=== PATIENT | male | born 1950 | race Caucasian/White ===

== ENCOUNTER 2019-03-21 11:17 | Outpatient (CLI) | payer MEDICARE, SELFPAY ==
[2019-03-21 12:00] LABS: Hemoglobin A1C 7.5 % (<5.7)
== END 2019-03-21 11:18 | disposition home or self-care (01) ==
LOC: CHSLAB 11:22
PROVIDERS: PCP Internal Medicine
DX: E10.42 Type 1 diabetes mellitus with diabetic polyneuropathy (principal)
CPT/HCPCS: 36415; 83036

== ENCOUNTER 2019-08-09 14:19 | Emergency (ER) | payer MEDICARE, OTHER, SELFPAY ==
--- NOTE | ~2019-08-09 | XR_ITS ---
XR shoulder LT min 2V DATE: 08/09/2019 15:21 INDICATION: Left shoulder pain following injury from fall TECHNIQUE: 4 views COMPARISON: None FINDINGS: There are multiple old healed left rib fractures. No recent fracture or dislocation of the left shoulder. Normal alignment at the acromioclavicular and glenohumeral joints. There is some calcification of the rotator cuff consistent with calcific tendin itis. There is a small erosion of the greater tuberosity. IMPRESSION: Left rotator cuff calcific tendinitis Old healed left rib fractures Reviewed, dictated and finalized at location A.
[2019-08-09 14:35] VITALS: BP 134/46; PULSE 63; RESP 17; TEMP 36.4; O2SAT 98
--- NOTE | 2019-08-09 14:59 | ED.UPPEXIN ---
HPI - Extremity Injury (Upper) General Stated Complaint: fell injured left shoulder Source: patient Mode of arrival: ambulatory Limitations: no limitations History of Present Illness HPI narrative: Patient is a 69-year-old male who tripped over something in his driveway and fell to the ground. Patient states he has been having a lot of pain and has left shoulder, however after the fall injury got exacerbated. Patient states he is able to move the arm it just hurts. Patient did not hit his head he had no loss of bowel or bladder he has a mild abrasion to his right knee but otherwise no other injury. Patient and is in his normal state of health. Patient did have back surgery approximately a month and a half ago and is healing well from that. complaint: injury to: left Onset (ago): hour(s) Other Extremity Injury: Left: shoulder Other injuries: LLE Place: home Severity: mild Relieving factors: none Exacerbating factors: movement of extremity Context: fall Associated symptoms: denies other symptoms Related Data Home Medications Medication Instructions Recorded Confirmed M.V.I. Adult 1 tab-cap PO DAILY 12/07/18 12/07/18 albuterol sulfate 2 inh INHALATION Q4-6H PRN 12/07/18 12/07/18 amlodipine 10 mg PO DAILY 12/07/18 12/07/18 ascorbic acid (vitamin C) [Vitamin 1 g PO DAILY 12/07/18 12/07/18 C] cetirizine 10 mg PO DAILY 12/07/18 12/07/18 escitalopram oxalate 20 mg PO DAILY 12/07/18 12/07/18 esomeprazole magnesium 20 mg PO DAILY 12/07/18 12/07/18 ezetimibe-simvastatin 1 tablet PO DAILY 12/07/18 12/07/18 fluticasone propion-salmeterol 1 inh INHALATION Q12H 12/07/18 12/07/18 [Advair Diskus] furosemide 20 mg PO DAILY 12/07/18 12/07/18 gabapentin 600 mg PO TID 12/07/18 12/07/18 levothyroxine 100 mcg PO DAILY 12/07/18 12/07/18 montelukast 10 mg PO DAILY 12/07/18 12/07/18 potassium chloride 10 meq PO DAILY 12/07/18 12/07/18 tiotropium bromide [Spiriva 1 puff INHALATION DAILY 12/07/18 12/07/18 Respimat] Allergies Allergy/AdvReac Type Severity Reaction Status Date / Time morphine Allergy Hallucinati Verified 12/07/18 02:31 ng Penicillins Allergy Hives Verified 12/07/18 02:31 Review of Systems Review of Systems: All systems reviewed & are unremarkable except as noted in HPI and below [facility] Social History Social History (Updated 08/09/19 @ 15:01 by Giselle Haynes MD) Alcohol intake: current Substance use: never Gender identity (if verbalized by the patient): Male Exam Const: General: no acute distress HENMT: Head: normal to inspection Eyes: Conjunctivae: conjunctivae normal Pupils: Equal, round and reactive pupils present Neck: Neck: normal visual inspection Chest: Chest palpation & inspection: normal inspection of the chest Resp: Effort & Inspection: normal respiratory effort Auscultation: clear to auscultation bilaterally Cardio: Rate: regular rate Rhythm: regular rhythm GI: GI Palp: Yes Soft to palpation, No Tenderness to palpation present (GI) and No Guarding due to palpation present (GI) Other: Umbilical hernia, patient states that is baseline. Back/Spine/Pelvis: Back: no CVA tenderness Skin: General skin exam: normal color Neuro: General: patient oriented x3 and moves all extremities Extrem: General: normal to inspection Other: Patient presents with pain to left shoulder he has mild pain on palpation. Patient is able to do full range of motion. He does not have pain over the humerus the pain seems to be the distal AC joint. Psych: Appearance: grossly normal Mental Status: mental status grossly normal Thought content: Yes Normal thought content present Discharge Plan Discharge Clinical Impression: Left shoulder pain Qualifiers: Chronicity: acute Qualified Code(s): M25.512 - Pain in left shoulder Patient Disposition: Home, Self-Care Condition: Stable Instructions: Antibiotic Form Prescriptions: No Action ascorbic acid (vitamin C) [Vitamin C
[2019-08-09 15:55] VITALS: RESP 17
== END 2019-08-09 15:55 | disposition home or self-care (01) ==
PROVIDERS: Emergency Provider Emergency Medicine; PCP Internal Medicine
DX: M25.512 Pain in left shoulder (principal)
CPT/HCPCS: 73030; 99282; 99283

== ENCOUNTER 2019-08-19 13:52 | Outpatient (RCR) | payer MEDICARE, OTHER, SELFPAY ==
--- NOTE | 2019-08-19 14:51 | PTOPEVAL ---
Thank you for referring Goyo Yepez to [facility]. Please review, sign, date and return this plan of care ARIEL. I agree with and certify that the following plan of care is medically necessary. Referring Physician Date Admitting Provider: Attending Provider: PHYSICIAN NOT ON STAFF Referring Provider: *PT Outpatient Evaluation Start: 08/19/19 14:04 Freq: Status: Active Protocol: Document 08/19/19 14:05 GRACIE (Rec: 08/19/19 14:32 GRACIE [id number]) Therapy Assessment Status Assessment Status Assessment Status Evaluation Outpatient Past Medical History Cardiovascular History Hx Hypercholesterolemia Yes Hx Hypertension Yes Respiratory History Hx Asthma Yes Gastrointestinal History Hx Appendectomy Yes Musculoskeletal History Hx Back Pain Yes Hx Fractures Yes: Lt femur Hx Joint Replacement Yes: Rt knee Endocrine History Hx Thyroidectomy Yes Evaluation Information Problem Diagnosis spinal stenosis of lumbar region with neurogenic claudication Onset 07/03/19 Cause Oswestry=46% Subjective Information Pt. reports that he underwent Query Text:As Reported By Patient/ surgery on his low back on . He reports that he stayed at the hospital for 2 days after surgery. He states that he has been trying to walk, but states that his activity levels have been decreased. He reports that he is most limited by pain with standing. He reports that pain is mostly into the left buttock. He reports that he has hx of bad knees and has had one replacment. he reports that knee pain also limits his ability to stand. He reports that his goal is to be able to walk further and stand longer. Prior Level of Function Activity Level (Last 3 Months) Occupation retired Hand Dominance Right Activity of Daily Living Ability Independent Indoor/Home Mobility Independent Community Mobility Independent Stairs Ability Independent Functional Cognition (Planning, Shopping Independent , Taking Medications)
--- NOTE | 2019-09-17 07:18 | PCPTNOTE ---
patient cancelled appt due to a conflict. EUGENIO
== END 2019-09-30 10:15 | disposition home or self-care (01) ==
LOC: CHSPT 13:52
DX: M48.062 Spinal stenosis, lumbar region with neurogenic claudication (principal)
CPT/HCPCS: 97110; 97161; 97530

== ENCOUNTER 2019-12-04 10:00 | Outpatient (RCR) | payer MEDICARE, OTHER, SELFPAY ==
--- NOTE | 2019-12-04 10:50 | PTOPEVAL ---
Thank you for referring Goyo Yepez to [facility].? The patient is scheduled to be seen for therapy? ____x/week for ___ weeks. Please review, sign, date and return this plan of care ARIEL. I agree with and certify that the following plan of care is medically necessary. Referring Physician Date Admitting Provider: Attending Provider: PHYSICIAN NOT ON STAFF Referring Provider: *PT Outpatient Evaluation Start: 12/04/19 10:01 Freq: Status: Active Protocol: Document 12/04/19 10:00 [facility] (Rec: 12/04/19 10:37 [facility] [id number]) Therapy Assessment Status Assessment Status Assessment Status Evaluation Outpatient Past Medical History Cardiovascular History Hx Hypercholesterolemia Yes Hx Hypertension Yes Respiratory History Hx Asthma Yes Gastrointestinal History Hx Appendectomy Yes Musculoskeletal History Hx Back Pain Yes Hx Fractures Yes: Lt femur Hx Joint Replacement Yes: Rt knee Endocrine History Hx Thyroidectomy Yes Evaluation Information Problem Diagnosis L hip pain Onset 11/26/19 Subjective Information patient reports he continues Query Text:As Reported By Patient/ to have pain in the L hip. he Family reports he was evaluated by a specialist who reports he a bursitis and OA in the L hip. he reports he also has issues with the L knee and worries his hip will not get better until he has surgery on the L knee. he reports he has the most difficulty with walking. he reports he also has great difficulty with standing. Prior Level of Function Comments Additional Prior Level of Function patient reports the pain in Comments the L hip has been increased for about 1 month. he reports he requires increased time and more bouts to accomplish all daily activities. Pain Assessment Timing of Pain Assessment Timing of Pain Assessment Assessment Pain Scale Pain Scale Used Numeric (1 - 10) Self Report Pain Assessment Left Hip(s) Reported Pain Level 5 Pain Description Aching,Stabbing Pain Frequency Acute,Chronic,Continuous Lowest Pain Intensity 3 Greatest Pain Intensity 7 Pain Score Pain Score 5: Self Report Interventions Used Interventions Used By Cl
--- NOTE | 2019-12-26 10:26 | PCPTNOTE ---
12/26/19-pt called to cancel, stated he is in too much pain still today in his mouth after having teeth removed last week. -HM
== END 2019-12-24 15:26 | disposition home or self-care (01) ==
LOC: CHSPT 10:00
DX: M25.552 Pain in left hip (principal); M16.12 Unilateral primary osteoarthritis, left hip
CPT/HCPCS: 97110; 97140; 97161

== ENCOUNTER 2019-12-31 15:20 | Inpatient (IN) | payer MEDICARE, OTHER, SELFPAY ==
[2019-12-31 15:42] VITALS: BMI 36.0
[2019-12-31 16:35] VITALS: PULSE 76; RESP 18; O2SAT 96
[2019-12-31 16:44] LABS: Glucose Point of Care 159 (65-105)
--- NOTE | 2019-12-31 16:44 | PC.NURSE ---
Patient ambulated from stretcher to bed. Patient has insulin pump on. Glucose monitor. [facility] on. Patient brought own cpap. Password RED
--- NOTE | 2019-12-31 17:09 | PC.NURSE ---
Incision left anterior shoulder. Skin intact, well approximated. Edema, bruising
--- NOTE | 2019-12-31 19:35 | PC.NURSE ---
Patient rang call light, stated he got an alert from his Dexcom that his blood sugar was 66, asked for a regular soda. SN took a can of Pepsi, offered additional snack of vanilla pudding, symone crackers, peanut butter and cottage cheese. Patient agreed to eat offered food, requested trip to restroom first. SN assisted patient to restroom and back to chair. Per Dexcom, blood sugar reading 44. Patient ate pudding, finished soda and ate 1 package of symone crackers. Dexcom reading 66. Patient drank some water, ate cottage cheese. Dexcom alerted to low blood sugar again, reading 46. SN checked patients blood sugar with facility meter, reading obtained of 245. Patient removed Dexcom meter and will monitor with facility glucose meter this evening.
[2019-12-31 20:00] VITALS: BP 140/63; PULSE 74; RESP 20; TEMP 37.4; O2SAT 95
[2019-12-31 20:20] LABS: Glucose Point of Care 245 (65-105)
[2019-12-31] MEDS: TAMSULOSIN HCL 0.4 MG CAPSULE 0.8 MG PO (21:13)
[2019-12-31] MEDS: traMADol HCL (*CRX) 50 MG TABLET PO (21:13)
[2019-12-31 21:39] LABS: Glucose Point of Care 274 (65-105)
[2019-12-31 23:10] VITALS: BP 143/64; PULSE 78; RESP 18; TEMP 37.2; O2SAT 95
[2020-01-01] MEDS: ACETAMINOPHEN 325 MG TABLET 650 MG PO ×3 (02:41→16:23)
--- NOTE | 2020-01-01 04:15 | PC.NURSE ---
Patient requested his blood sugar be checked. Blood sugar result 286. Pt. put result into insulin pump, insulin pump calculated a 3.9 ut dose, pt. administered insulin through pump.
[2020-01-01] MEDS: traMADol HCL (*CRX) 50 MG TABLET PO ×2 (04:16→22:57)
[2020-01-01 04:20] LABS: Glucose Point of Care 286 (65-105)
[2020-01-01] MEDS: LEVOTHYROXINE SODIUM 100 MCG TABLET PO (05:21)
[2020-01-01 07:57] LABS: Glucose Point of Care 193 (65-105)
--- NOTE | 2020-01-01 07:57 | PC.NURSE ---
AM glucose noted to be 193, patient programmed the number in to his insulin pump and administered 1.1 units
[2020-01-01 07:58] VITALS: BP 146/49; PULSE 66; RESP 18; TEMP 36.3; O2SAT 95
--- NOTE | 2020-01-01 08:05 | WPDREHABHP ---
H&P: HPI History of Present Illness Date/Time: 01/01/20 08:05 Chief complaint: REHAB Narrative: Goyo Yepez is a 69 year old male who comes in this facility status post left rotator cuff repair for physical therapy and reconditioning. Patient is familiar with physical therapy and the requirements as he has had his right knee replaced in the past. Patient also has a history of asthma hypertension diabetes Graves disease. Patient has no complaints at this time in particular states pain management is good for his left shoulder. Review of Systems Constitutional Constitutional: Reports no additional constitutional complaints, Denies fatigue, Denies fever(s), Denies headache(s) and Reports weakness (Left arm) Cardiovascular Cardiovascular: Reports no additional cardiovascular complaints, Denies chest pain, Denies chest pain at rest and Denies chest pain with activity Respiratory Respiratory: Reports as per HPI, Reports no additional respiratory complaints, Denies dyspnea and Denies dyspnea on exertion Gastrointestinal Gastrointestinal: Reports no additional gastrointestinal complaints Genitourinary Genitourinary: Reports no additional male genitourinary complaints Musculoskeletal Musculoskeletal: Reports as per HPI Neurologic Reports system reviewed and no additional complaints, except as documented, Denies focal weakness, Denies numbness and Denies tingling Psychiatric Psychiatric: Reports no additional psychiatric complaints Endocrine Endocrine: Reports no additional endocrine complaints and Reports as per HPI [facility] Past Medical History Medical History Asthma Femur fracture, left Graves disease Hyperlipidemia Hypertension Type 1 diabetes mellitus Surgical History Surgical History History of appendectomy History of thyroidectomy, total Family History Family History Sibling Cancer Asthma Mother Leukemia Sibling Malignant neoplasm of prostate Father Asthma Social History Social History Smoking status: Never smoker Alcohol intake: current Drinks per week: 1 Substance use: never Gender identity (if verbalized by the patient): Male Sexual Orientation (if Verbalized by the Patient): Straight or Heterosexual Spiritual care concerns: No Meds Home Medications and Allergies Home Medications Medication Instructions Recorded Confirmed Type albuterol sulfate 2 inh INHALATION Q4-6H PRN 12/07/18 12/31/19 History amlodipine 10 mg PO DAILY 12/07/18 12/31/19 History cetirizine 10 mg PO DAILY 12/07/18 12/31/19 History escitalopram oxalate 20 mg PO DAILY 12/07/18 12/31/19 History esomeprazole magnesium 20 mg PO DAILY 12/07/18 12/31/19 History ezetimibe-simvastatin 1 tablet PO DAILY 12/07/18 12/31/19 History furosemide 20 mg PO DAILY 12/07/18 12/31/19 History gabapentin 600 mg PO TID 12/07/18 12/31/19 History levothyroxine 100 mcg PO DAILY 12/07/18 12/31/19 History montelukast 10 mg PO DAILY 12/07/18 12/31/19 History potassium chloride 10 meq PO DAILY 12/07/18 12/31/19 History tiotropium bromide [Spiriva 2 puff INHALATION DAILY 12/07/18 12/31/19 History Respimat] insulin aspart U-100 [Novolog 1 unit SUBCUT DIRECTED 08/09/19 12/31/19 History U-100 Insulin aspart] aspirin [Ecotrin] 325 mg PO BID 12/31/19 12/31/19 History docusate sodium 100 mg PO BID PRN 12/31/19 12/31/19 History ipratropium-albuterol 3 ml INHALATION QID PRN 12/31/19 12/31/19 History tamsulosin [Flomax] 0.8 mg PO HS 12/31/19 12/31/19 History tramadol 50 mg PO Q6H PRN 12/31/19 12/31/19 History fluticasone propion-salmeterol INHALATION BID 01/01/20 History [Advair Diskus] Allergies Allergy/AdvReac Type Severity Reaction Status Date / Time morphine Allergy Hallucinati Verified 12/07/18 02:31 ng Penici
[2020-01-01] MEDS: POTASSIUM CHLORIDE 10 MEQ TABLET PO (09:17)
[2020-01-01] MEDS: SIMVASTATIN 10 MG TABLET 40 MG PO (09:17)
[2020-01-01] MEDS: ASPIRIN 325 MG ENTERIC TABLET PO ×2 (09:18→16:23)
[2020-01-01] MEDS: FUROSEMIDE 20 MG TABLET PO (09:18)
[2020-01-01] MEDS: PANTOPRAZOLE 40 MG TABLET PO (09:18)
[2020-01-01] MEDS: ESCITALOPRAM OXALATE 10 MG TABLET 20 MG PO (09:18)
[2020-01-01] MEDS: EZETIMIBE 10 MG TABLET PO (09:19)
[2020-01-01] MEDS: MONTELUKAST SODIUM 10 MG TABLET PO (09:20)
[2020-01-01] MEDS: LORATADINE 10 MG TABLET PO (09:20)
[2020-01-01] MEDS: amLODIPine BESYLATE 5 MG TABLET 10 MG PO (09:20)
[2020-01-01] MEDS: GABAPENTIN 300 MG CAPSULE 600 MG PO ×3 (09:21→16:23)
[2020-01-01] MEDS: SALMET XINAFT/FLUTIC PROPIN 500 MCG/50 MCG INH CAP 1 PUFF INHALATION ×2 (09:50→20:12)
--- NOTE | 2020-01-01 10:40 | PC.NURSE ---
Up in [place] with PT department, using cane from home tolerated well
[2020-01-01 11:26] LABS: Glucose Point of Care 224 (65-105)
--- NOTE | 2020-01-01 11:30 | PC.NURSE ---
Pt complains of slight nausea, requesting medication. SUEDING MACHINE TENDER to be notified there is no medication ordered.
--- NOTE | 2020-01-01 12:00 | PC.NURSE ---
Zofran given po per pt request for nausea.
[2020-01-01] MEDS: ONDANSETRON HCL ODT 4 MG TABLET PO (12:15)
--- NOTE | 2020-01-01 12:16 | PC.NURSE ---
Zofran po given for complaints of nausea.
[2020-01-01 16:00] VITALS: BP 132/65; PULSE 87; RESP 16; TEMP 36.5; O2SAT 98
--- NOTE | 2020-01-01 16:46 | PC.NURSE ---
FSBS 228, PT INSULIN PUMP TO ADMINISTER 2.4UNITS
[2020-01-01 16:47] LABS: Glucose Point of Care 228 (65-105)
--- NOTE | 2020-01-01 16:47 | PC.NURSE ---
PT WORKING WITH THERAPY AT THIS TIME
[2020-01-01] MEDS: TAMSULOSIN HCL 0.4 MG CAPSULE 0.8 MG PO (20:12)
[2020-01-01 20:34] LABS: Glucose Point of Care 154 (65-105)
[2020-01-01] MEDS: MELATONIN 5 MG TABLET PO (22:58)
[2020-01-02] VITALS: BP 129/64; PULSE 70; RESP 18; TEMP 37.1; O2SAT 94
--- NOTE | 2020-01-02 | PC.NURSE ---
Patient had called nurse and said he feel like he's having a low . Nurse check blood sugar and it was 43. Patient says he just feels xavier lightheaded, which he says is how it always feels when blood sugar is low. Patient given orange juice with sugar, symone crackers and milk. Patient sitting on side of bed with call light in reach.
--- NOTE | 2020-01-02 00:15 | PC.NURSE ---
Patient says he's feeling a little better now. Blood sugar checked and is now 76. Patient lying in bed with call light in reach.
--- NOTE | 2020-01-02 00:30 | PC.NURSE ---
Patient's blood sugar now 73. Patient given ham sandwich to eat and he's happy to get it saying he can gnaw on it. Sitting on side of bed eating sandwich with call light in reach.
--- NOTE | 2020-01-02 00:45 | PC.NURSE ---
Patient's blood sugar now 126. Patient says he ate about half the sandwich. Resting in bed with call light in reach.
[2020-01-02 00:48] LABS: Glucose Point of Care 73 (65-105)
[2020-01-02 00:48] LABS: Glucose Point of Care 76 (65-105)
[2020-01-02 00:48] LABS: Glucose Point of Care 126 (65-105)
[2020-01-02 00:48] LABS: Glucose Point of Care 43 (65-105)
[2020-01-02 02:53] LABS: Glucose Point of Care 215 (65-105)
--- NOTE | 2020-01-02 02:55 | PC.NURSE ---
Patient awakened easily for blood sugar to be taken. Patient says he feels fine now. Blood sugar is 215. Call light in reach.
[2020-01-02] MEDS: LEVOTHYROXINE SODIUM 100 MCG TABLET PO (06:22)
[2020-01-02 07:20] VITALS: BP 137/79; PULSE 71; RESP 18; TEMP 36.9; O2SAT 93
[2020-01-02 07:28] LABS: Glucose Point of Care 194 (65-105)
--- NOTE | 2020-01-02 07:30 | PC.NURSE ---
Blood sugar check 194, pt. gave self per insulin pump of 0.7 ut.
[2020-01-02] MEDS: SALMET XINAFT/FLUTIC PROPIN 500 MCG/50 MCG INH CAP 1 PUFF INHALATION ×2 (09:37→21:19)
[2020-01-02] MEDS: ASPIRIN 325 MG ENTERIC TABLET PO ×2 (09:38→18:20)
[2020-01-02] MEDS: POTASSIUM CHLORIDE 10 MEQ TABLET PO (09:39)
[2020-01-02] MEDS: amLODIPine BESYLATE 5 MG TABLET 10 MG PO (09:39)
[2020-01-02] MEDS: traMADol HCL (*CRX) 50 MG TABLET PO ×3 (09:40→21:53)
[2020-01-02] MEDS: PANTOPRAZOLE 40 MG TABLET PO (09:40)
[2020-01-02] MEDS: MONTELUKAST SODIUM 10 MG TABLET PO (09:40)
[2020-01-02] MEDS: ESCITALOPRAM OXALATE 10 MG TABLET 20 MG PO (09:41)
[2020-01-02] MEDS: GABAPENTIN 300 MG CAPSULE 600 MG PO ×3 (09:41→18:20)
[2020-01-02] MEDS: SIMVASTATIN 10 MG TABLET 40 MG PO (09:42)
[2020-01-02] MEDS: EZETIMIBE 10 MG TABLET PO (09:42)
[2020-01-02] MEDS: FUROSEMIDE 20 MG TABLET PO (09:42)
[2020-01-02] MEDS: LORATADINE 10 MG TABLET PO (09:42)
--- NOTE | 2020-01-02 11:30 | PC.NURSE ---
Blood sugar check 194. Pt. gave self bolus of 0.7ut per insulin pump.
[2020-01-02 11:52] LABS: Glucose Point of Care 194 (65-105)
[2020-01-02] MEDS: ACETAMINOPHEN 325 MG TABLET 650 MG PO (14:05)
[2020-01-02 16:30] VITALS: BP 149/52; PULSE 69; RESP 18; TEMP 36.6; O2SAT 96
[2020-01-02 17:04] LABS: Glucose Point of Care 220 (65-105)
--- NOTE | 2020-01-02 18:31 | PC.NURSE ---
Blood sugar check 220. Pt. gave self bolus of 1.8ut per insulin pump.
[2020-01-02] MEDS: MELATONIN 5 MG TABLET PO (21:19)
[2020-01-02] MEDS: TAMSULOSIN HCL 0.4 MG CAPSULE 0.8 MG PO (21:19)
[2020-01-02 21:29] LABS: Glucose Point of Care 82 (65-105)
[2020-01-03] VITALS: BP 142/61; PULSE 70; RESP 18; TEMP 36.7; O2SAT 96
[2020-01-03 05:05] LABS: Glucose Point of Care 267 (65-105)
[2020-01-03] MEDS: LEVOTHYROXINE SODIUM 100 MCG TABLET PO (05:37)
[2020-01-03] MEDS: traMADol HCL (*CRX) 50 MG TABLET PO ×3 (05:37→20:07)
[2020-01-03 07:40] VITALS: BP 142/58; PULSE 74; RESP 18; TEMP 36.3; O2SAT 95
[2020-01-03] MEDS: PANTOPRAZOLE 40 MG TABLET PO (09:03)
[2020-01-03] MEDS: SIMVASTATIN 10 MG TABLET 40 MG PO (09:03)
[2020-01-03] MEDS: MONTELUKAST SODIUM 10 MG TABLET PO (09:03)
[2020-01-03] MEDS: GABAPENTIN 300 MG CAPSULE 600 MG PO ×3 (09:04→17:24)
[2020-01-03] MEDS: LORATADINE 10 MG TABLET PO (09:04)
[2020-01-03] MEDS: ESCITALOPRAM OXALATE 10 MG TABLET 20 MG PO (09:04)
[2020-01-03] MEDS: amLODIPine BESYLATE 5 MG TABLET 10 MG PO (09:04)
[2020-01-03] MEDS: EZETIMIBE 10 MG TABLET PO (09:04)
[2020-01-03] MEDS: FUROSEMIDE 20 MG TABLET PO (09:04)
[2020-01-03] MEDS: ASPIRIN 325 MG ENTERIC TABLET PO ×2 (09:04→17:23)
[2020-01-03] MEDS: POTASSIUM CHLORIDE 10 MEQ TABLET PO (09:05)
[2020-01-03] MEDS: SALMET XINAFT/FLUTIC PROPIN 500 MCG/50 MCG INH CAP 1 PUFF INHALATION ×2 (09:05→20:06)
[2020-01-03] MEDS: DOCUSATE SODIUM 100 MG CAPSULE PO ×2 (09:10→17:23)
[2020-01-03] MEDS: ONDANSETRON HCL ODT 4 MG TABLET PO (10:46)
[2020-01-03 11:19] LABS: Glucose Point of Care 240 (65-105)
--- NOTE | 2020-01-03 11:30 | PC.NURSE ---
Pt blood sugar check 240. Pt. gave self 2.5 ut bolus per insulin pump.
[2020-01-03 16:30] VITALS: BP 121/58; PULSE 78; RESP 18; TEMP 36.4; O2SAT 100
--- NOTE | 2020-01-03 16:50 | PC.NURSE ---
Pt. blood sugar check 75. Pt. did not give self any bolus of insulin.
[2020-01-03 17:14] LABS: Glucose Point of Care 75 (65-105)
[2020-01-03] MEDS: TAMSULOSIN HCL 0.4 MG CAPSULE 0.8 MG PO (20:06)
[2020-01-03 20:16] LABS: Glucose Point of Care 289 (65-105)
--- NOTE | 2020-01-03 22:22 | PC.NURSE ---
pt resting in bed with eyes closed, respirations even and regular, no evidence of distress noted
[2020-01-03 23:06] VITALS: BP 162/73; PULSE 74; RESP 20; TEMP 37.1; O2SAT 95
[2020-01-04] MEDS: traMADol HCL (*CRX) 50 MG TABLET PO ×2 (02:07→09:54)
[2020-01-04] MEDS: LEVOTHYROXINE SODIUM 100 MCG TABLET PO (05:47)
[2020-01-04 08:00] VITALS: BP 130/50; PULSE 74; RESP 20; TEMP 37.1; O2SAT 94
[2020-01-04 08:13] LABS: Glucose Point of Care 193 (65-105)
--- NOTE | 2020-01-04 08:55 | P.DS_ITS ---
DS: Admitting Diagnosis Admitting Diagnosis Admitting Diagnosis: REHAB <CYNTHIA Hernandez - Last Filed: 01/04/20 09:05> DS: Discharge Diagnosis Discharge Diagnosis (1) Rotator cuff arthropathy: Code(s): M12.819 - Other specific arthropathies, not elsewhere classified, unspecified shoulder <CYNTHIA Hernandez - Last Filed: 01/04/20 09:05> Status: Acute <CYNTHIA Hernandez - Last Filed: 01/04/20 09:05> Assessment and Plan: Dr. Finn Pillai-follow-up appointment for 01/10/2020 at 1145 at the [facility] medicine. . * Left upper extremity arm do not put weight on this arm or use it to lift or carry * Wear your sling with abduction pillow as instructed * Keep affected extremity elevated * Keep your polar ice care machine or place ice on affected site as instructed * Remove arm sling 3-4 times a day to perform the exercises for your arm as instructed * Place a pillow behind the elbow when resting either reclining or flat as this generally helps with shoulder pain Care instruction * Keep incision site clean and dry * Do not use lotions cream or antibiotic ointments on the wound * Do not soak wounds or sit in hot tub or pool until cleared by the doctor * Do not remove any clear dressing over incisional sites * You may start showering today. Dressing dry after showering <CYNTHIA Hernandez - Last Filed: 01/04/20 09:05> (2) Type 1 diabetes mellitus: Code(s): E10.9 - Type 1 diabetes mellitus without complications <CYNTHIA Hernandez - Last Filed: 01/04/20 09:05> Status: Acute <CYNTHIA Hernandez - Last Filed: 01/04/20 09:05> Assessment and Plan: * Continue home medication follow-up with primary care physician in 1 to 2 weeks <CYNTHIA Hernandez - Last Filed: 01/04/20 09:05> (3) Hypertension: Code(s): I10 - Essential (primary) hypertension <CYNTHIA Hernandez - Last Filed: 01/04/20 09:05> Status: Acute <Kevin Cifuentes DEYVI-C - Last Filed: 01/04/20 09:05> Assessment and Plan: * Continue home medication follow-up primary care physician in 1 to 2 weeks <Kevin ContehChris Esau ALLERGIST/IMMUNOLOGIST-C - Last Filed: 01/04/20 09:05> (4) Hyperlipidemia: Code(s): E78.5 - Hyperlipidemia, unspecified <Kevin ContehChris Esau ALLERGIST/IMMUNOLOGIST-C - Last Filed: 01/04/20 09:05> Status: Acute <Kevin Cifuentes ALLERGIST/IMMUNOLOGIST-C - Last Filed: 01/04/20 09:05> Assessment and Plan: * Continue home medication follow-up primary care physician in 1 to 2-week <Kevin ContehChris Esau ALLERGIST/IMMUNOLOGIST-C - Last Filed: 01/04/20 09:05> (5) Asthma: Code(s): J45.909 - Unspecified asthma, uncomplicated <Kevin ContehChris Cifuentes ALLERGIST/IMMUNOLOGIST-C - Last Filed: 01/04/20 09:05> Status: Acute <Kevin Cifuentes ALLERGIST/IMMUNOLOGIST-C - Last Filed: 01/04/20 09:05> Assessment and Plan: * Continue home medication follow-up primary care physician in 1 to 2-week <Kevin ContehChris Esau ALLERGIST/IMMUNOLOGIST-C - Last Filed: 01/04/20 09:05> (6) Graves disease: Code(s): E05.00 - Thyrotoxicosis with diffuse goiter without thyrotoxic crisis or storm <Kevin ContehChris Cifuentes ALLERGIST/IMMUNOLOGIST-C - Last Filed: 01/04/20 09:05> Status: Acute <Kevin Cifuentes ALLERGIST/IMMUNOLOGIST-C - Last Filed: 01/04/20 09:05> Assessment and Plan: * Continue home medication follow-up primary care physician in 1 to 2-week <Techarla YadyChris Cifuentes ALLERGIST/IMMUNOLOGIST-C - Last Filed: 01/04/20 09:05> (7) Weakness: Code(s): R53.1 - Weakness <Techarla YadyChris Cifuentes ALLERGIST/IMMUNOLOGIST-C - Last Filed: 01/04/20 09:05> Status: Acute <Techarla YadyChris Cifuentes ALLERGIST/IMMUNOLOGIST-C - Last Filed: 01/04/20
--- NOTE | 2020-01-04 08:55 | PM.DS ---
DS: Admitting Diagnosis Admitting Diagnosis Admitting Diagnosis: REHAB <CYNTHIA Hernandez - Last Filed: 01/04/20 09:05> DS: Discharge Diagnosis Discharge Diagnosis (1) Rotator cuff arthropathy: Code(s): M12.819 - Other specific arthropathies, not elsewhere classified, unspecified shoulder <CYNTHIA Hernandez - Last Filed: 01/04/20 09:05> Status: Acute <CYNTHIA Hernandez - Last Filed: 01/04/20 09:05> Assessment and Plan: Dr. Finn Pillai-follow-up appointment for 01/10/2020 at 1145 at the [facility] medicine. . Left upper extremity arm do not put weight on this arm or use it to lift or carry Wear your sling with abduction pillow as instructed Keep affected extremity elevated Keep your polar ice care machine or place ice on affected site as instructed Remove arm sling 3-4 times a day to perform the exercises for your arm as instructed Place a pillow behind the elbow when resting either reclining or flat as this generally helps with shoulder pain Care instruction Keep incision site clean and dry Do not use lotions cream or antibiotic ointments on the wound Do not soak wounds or sit in hot tub or pool until cleared by the doctor Do not remove any clear dressing over incisional sites You may start showering today. Dressing dry after showering <CYNTHIA Hernandez - Last Filed: 01/04/20 09:05> (2) Type 1 diabetes mellitus: Code(s): E10.9 - Type 1 diabetes mellitus without complications <CYNTHIA Hernandez - Last Filed: 01/04/20 09:05> Status: Acute <CYNTHIA Hernandez - Last Filed: 01/04/20 09:05> Assessment and Plan: Continue home medication follow-up with primary care physician in 1 to 2 weeks <CYNTHIA Hernandez - Last Filed: 01/04/20 09:05> (3) Hypertension: Code(s): I10 - Essential (primary) hypertension <CYNTHIA Hernandez - Last Filed: 01/04/20 09:05> Status: Acute <REZA HernandezC - Last Filed: 01/04/20 09:05> Assessment and Plan: Continue home medication follow-up primary care physician in 1 to 2 weeks <DEYVI Hernandez-C - Last Filed: 01/04/20 09:05> (4) Hyperlipidemia: Code(s): E78.5 - Hyperlipidemia, unspecified <DEYVI Hernandez-C - Last Filed: 01/04/20 09:05> Status: Acute <DEYVI Hernandez-C - Last Filed: 01/04/20 09:05> Assessment and Plan: Continue home medication follow-up primary care physician in 1 to 2-week <DEYVI Hernandez-Thomas - Last Filed: 01/04/20 09:05> (5) Asthma: Code(s): J45.909 - Unspecified asthma, uncomplicated <DEYVI Hernandez-C - Last Filed: 01/04/20 09:05> Status: Acute <DEYVI Hernandez-C - Last Filed: 01/04/20 09:05> Assessment and Plan: Continue home medication follow-up primary care physician in 1 to 2-week <DEYVI Hernandez-C - Last Filed: 01/04/20 09:05> (6) Graves disease: Code(s): E05.00 - Thyrotoxicosis with diffuse goiter without thyrotoxic crisis or storm <DEYVI Hernandez-C - Last Filed: 01/04/20 09:05> Status: Acute <DEYVI Hernandez-Thomas - Last Filed: 01/04/20 09:05> Assessment and Plan: Continue home medication follow-up primary care physician in 1 to 2-week <DEYVI Hernandez-Thomas - Last Filed: 01/04/20 09:05> (7) Weakness: Code(s): R53.1 - Weakness <DEYVI Hernandez-C - Last Filed: 01/04/20 09:05> Status: Acute <DEYVI Hernandez-Thomas - Last Filed: 01/04/20 09:05> Assessment and Plan: Physical therapy/Occupational Therapy complete Patient will have family members assist him while he is at home Patient declines any home health <Kevin Cifuentes, DEYVI-C - Last Filed: 01/04/20 09:05> DS: Summary Time Spent with Patient Time attestation: Total time spent providing and/or coordinat
[2020-01-04] MEDS: SALMET XINAFT/FLUTIC PROPIN 500 MCG/50 MCG INH CAP 1 PUFF INHALATION (09:51)
[2020-01-04] MEDS: SIMVASTATIN 10 MG TABLET 40 MG PO (09:53)
[2020-01-04] MEDS: LORATADINE 10 MG TABLET PO (09:53)
[2020-01-04] MEDS: POTASSIUM CHLORIDE 10 MEQ TABLET PO (09:53)
[2020-01-04] MEDS: DOCUSATE SODIUM 100 MG CAPSULE PO (09:53)
[2020-01-04] MEDS: FUROSEMIDE 20 MG TABLET PO (09:53)
[2020-01-04] MEDS: ASPIRIN 325 MG ENTERIC TABLET PO (09:53)
[2020-01-04] MEDS: GABAPENTIN 300 MG CAPSULE 600 MG PO (09:54)
[2020-01-04] MEDS: PANTOPRAZOLE 40 MG TABLET PO (09:54)
[2020-01-04] MEDS: ESCITALOPRAM OXALATE 10 MG TABLET 20 MG PO (09:54)
[2020-01-04] MEDS: amLODIPine BESYLATE 5 MG TABLET 10 MG PO (09:54)
[2020-01-04] MEDS: MONTELUKAST SODIUM 10 MG TABLET PO (09:55)
[2020-01-04] MEDS: EZETIMIBE 10 MG TABLET PO (09:55)
--- NOTE | 2020-01-06 13:25 | PC.NURSE ---
Pt states he received and understood his discharge instructions. He states the crew was outstanding .
== END 2020-01-04 11:25 | disposition home or self-care (01) | DRG 561 ==
PROVIDERS: Admitting Provider Emergency Medicine; Visit Provider Emergency Medicine
DX: Z47.89 Encounter for other orthopedic aftercare (principal); I10 Essential (primary) hypertension; J45.909 Unspecified asthma, uncomplicated; E05.00 Thyrotoxicosis with diffuse goiter without thyrotoxic crisis or storm; E78.5 Hyperlipidemia, unspecified; E10.9 Type 1 diabetes mellitus without complications; Z96.41 Presence of insulin pump (external) (internal); Z79.4 Long term (current) use of insulin
CPT/HCPCS: 97110; 97161; 97165; 97530; 97535; A9270

== ENCOUNTER 2020-01-14 14:55 | Outpatient (RCR) | payer MEDICARE, OTHER, SELFPAY ==
--- NOTE | 2020-01-14 15:49 | PTOPEVAL ---
Thank you for referring Goyo Yepez to [facility].? The patient is scheduled to be seen for therapy? ____x/week for ___ weeks. Please review, sign, date and return this plan of care ARIEL. I agree with and certify that the following plan of care is medically necessary. Referring Physician Date Admitting Provider: Attending Provider: PHYSICIAN NOT ON STAFF Referring Provider: *PT Outpatient Evaluation Start: 01/14/20 15:05 Freq: Status: Active Protocol: Document 01/14/20 15:05 [facility] (Rec: 01/14/20 15:46 [facility] [id number]) Therapy Assessment Status Assessment Status Assessment Status Evaluation Outpatient Past Medical History Neurological History Hx Neurological Disorders No Significant History Cardiovascular History Hx Hypercholesterolemia Yes Hx Hypertension Yes Respiratory History Hx Asthma Yes Hx Sleep Apnea Yes Gastrointestinal History Hx Appendectomy Yes Genitourinary History Hx Benign Prostatic Hyperplasia Yes Musculoskeletal History Hx Back Pain Yes Hx Fractures Yes: Lt femur Hx Joint Replacement Yes: Rt knee Hematological History Hx Blood Transfusions Yes Endocrine History Hx Thyroidectomy Yes HEENT History Hx HEENT Disorders No Significant History Integumentary History Hx Cellulitis Yes Reproductive History Hx Reproductive Disorders No Significant History Psychosocial History Hx Psychiatric Disorders No Significant History Pain History History of Any Previous or Ongoing No Significant History Instance of Pain Anesthesia History Hx Anesthesia Reactions No Significant History Evaluation Information Problem Diagnosis 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 he reports he is no a little over 2 weeks post op and ready to begin outpatient PT. he reports he is compliant with his HEP at home, and is now allowed to DC sling wear. Prior Level of Function Comments Additional Prior Level of Function patient reportsl prior to Comments surgery he had pain, weakness,
--- NOTE | 2020-02-05 16:14 | PCPTNOTE ---
02/05/20-pt cancelled apt today, no reason given.-HM.
--- NOTE | 2020-02-14 10:15 | PTOPEVAL ---
Thank you for referring Goyo Yepez to [facility] [place].? The patient is scheduled to be seen for therapy? ____x/week for ___ weeks. Please review, sign, date and return this plan of care ARIEL. I agree with and certify that the following plan of care is medically necessary. Referring Physician Date Admitting Provider: Attending Provider: PHYSICIAN NOT ON STAFF Referring Provider: *PT Outpatient Evaluation Start: 01/14/20 15:05 Freq: Status: Active Protocol: Document 02/14/20 09:27 [facility] (Rec: 02/14/20 10:13 [facility] [id number]) Therapy Assessment Status Assessment Status Assessment Status Re-evaluation Outpatient Past Medical History Neurological History Hx Neurological Disorders No Significant History Cardiovascular History Hx Hypercholesterolemia Yes Hx Hypertension Yes Respiratory History Hx Asthma Yes Hx Sleep Apnea Yes Gastrointestinal History Hx Appendectomy Yes Genitourinary History Hx Benign Prostatic Hyperplasia Yes Musculoskeletal History Hx Back Pain Yes Hx Fractures Yes: Lt femur Hx Joint Replacement Yes: Rt knee Hematological History Hx Blood Transfusions Yes Endocrine History Hx Thyroidectomy Yes HEENT History Hx HEENT Disorders No Significant History Integumentary History Hx Cellulitis Yes Reproductive History Hx Reproductive Disorders No Significant History Psychosocial History Hx Psychiatric Disorders No Significant History Pain History History of Any Previous or Ongoing No Significant History Instance of Pain Anesthesia History Hx Anesthesia Reactions No Significant History Evaluation Information Problem Diagnosis 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 Patient states that even though he has felt progress, he still feels that he needs to get stronger to assist with everyday living such as, washing his hair and reaching into his front pocket . Patient states that he has been attempting to be more consciouis of not using his L UE for carrying. Pain Assessment Timing o
--- NOTE | 2020-03-11 13:36 | PTOPEVAL ---
Thank you for referring Goyo Yepez to [facility].? The patient is scheduled to be seen for therapy? ____x/week for ___ weeks. Please review, sign, date and return this plan of care ARIEL. I agree with and certify that the following plan of care is medically necessary. Referring Physician Date Admitting Provider: Attending Provider: PHYSICIAN NOT ON STAFF Referring Provider: *PT Outpatient Evaluation Start: 01/14/20 15:05 Freq: Status: Active Protocol: Document 03/11/20 10:[address] [facility] (Rec: 03/11/20 13:[address] [facility] [id number]) Therapy Assessment Status Assessment Status Assessment Status Discharge Outpatient Past Medical History Neurological History Hx Neurological Disorders No Significant History Cardiovascular History Hx Hypercholesterolemia Yes Hx Hypertension Yes Respiratory History Hx Asthma Yes Hx Sleep Apnea Yes Gastrointestinal History Hx Appendectomy Yes Genitourinary History Hx Benign Prostatic Hyperplasia Yes Musculoskeletal History Hx Back Pain Yes Hx Fractures Yes: Lt femur Hx Joint Replacement Yes: Rt knee Hematological History Hx Blood Transfusions Yes Endocrine History Hx Thyroidectomy Yes HEENT History Hx HEENT Disorders No Significant History Integumentary History Hx Cellulitis Yes Reproductive History Hx Reproductive Disorders No Significant History Psychosocial History Hx Psychiatric Disorders No Significant History Pain History History of Any Previous or Ongoing No Significant History Instance of Pain Anesthesia History Hx Anesthesia Reactions No Significant History Evaluation Information Problem Diagnosis 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 he reports he has Family slacked off from doing his therapy the last week at home. however, he reports he has no pain in the L shoulder and reports he is able to easiliy reach overhead and behind head at home. Pain Assessment Timing of Pain Assessment Timing of Pain Assessment Assessment Self Report Self Report Pain Level 0 Pain Score Pain Score 0: Self Report Upper Extremity Range of Motion Scapular/ Shoulder Range of Motion Left Shoulder F
== END 2020-03-11 14:21 | disposition home or self-care (01) ==
LOC: CHSPT 14:55
DX: M75.122 Complete rotator cuff tear or rupture of left shoulder, not specified as traumatic (principal)
CPT/HCPCS: 97014; 97110; 97161; G0283

== ENCOUNTER 2020-06-02 14:45 | Emergency (ER) | payer MEDICARE, OTHER, SELFPAY ==
--- NOTE | ~2020-06-02 | XR_ITS ---
EXAMINATION: XR chest ET placement EXAM DATE: 06/02/2020 15:21 INDICATION: Endotracheal tube, nasogastric tube placement. TECHNIQUE: Portable AP frontal chest x-ray was obtained. Comparison is made to prior examination from 06/28/2015. FINDINGS: Image excludes the upper 3rd and right side of the chest. Endotracheal tube is not imaged. Feeding tube tip over the distal aspect of the esophagus. Large amount of gas within the stomach and small bowel, could indicate esophageal intubation, ileus or obstruction. Lungs have diffuse airspace disease. I discussed this case with radiology aide Lina prior to being completed. Reportedly patien t did not respond to resuscitative efforts, a repeat chest x-ray was not obtained. IMPRESSION: As above. Reviewed, dictated and finalized at location A. IMPRESSION: As above.
[2020-06-02 15:15] LABS: Hematocrit 41.9 % (37.0-46.0); Hemoglobin 12.6 g/dL (12.4-15.3); Mean Corpuscular HGB Conc 30.1 g/dL (32.0-36.0); Mean Corpuscular Hemoglobin 24.1 pg (27.0-31.0); Mean Corpuscular Volume 80.3 fL (78.0-102.0); Mean Platelet Volume 10.5 fl (8.7-11.0); Platelet Count Result 245 K/mm3 (150-420); Red Blood Count 5.22 M/mm3 (4.70-6.10); Red Cell Distribution Width 17.9 % (11.6-14.4); White Blood Count 7.6 K/mm3 (4.8-10.8)
--- NOTE | 2020-06-02 15:20 | ED.CPR ---
HPI - CPR General Chief Complaint: Cardiac Arrest/CPR Stated Complaint: AMB Source: patient, family and RN notes reviewed Mode of arrival: EMS Limitations: other (Unresponsive) History of Present Illness HPI narrative: Patient arrives via EMS with CPR being performed with respiratory bag ventilations via Sergio airway tube. He is in asystole. they report that he had been down approximately 10 minutes without any CPR started prior to their arrival. They have been doing CPR and bagging, they had brief return of spontaneous pulse but then no pulses appreciated. Patient received 3 doses of epinephrine and 1 dose of sodium bicarb. MD complaint: collapsed during rest Onset (ago): minute(s) (20) Timing confirmed by: family member Place: home Bystander CPR performed: No Initial findings in the field: unresponsive and no pulse ROSC in the field: Yes (But then lost arrival) Associated injuries: No Known history of: other ( Type 1 diabetes, asthma) Treatments prior to arrival: BMV, other airway device, chest compressions, epinephrine mgs # (3) and sodium bicarbonate (1) Related Data Home Medications Medication Instructions Recorded Confirmed Spiriva Respimat 2 puff INHALATION DAILY 12/07/18 12/31/19 albuterol sulfate 2 inh INHALATION Q4-6H PRN 12/07/18 12/31/19 amlodipine 10 mg PO DAILY 12/07/18 12/31/19 cetirizine 10 mg PO DAILY 12/07/18 12/31/19 escitalopram oxalate 20 mg PO DAILY 12/07/18 12/31/19 esomeprazole magnesium 20 mg PO DAILY 12/07/18 12/31/19 ezetimibe-simvastatin 1 tablet PO DAILY 12/07/18 12/31/19 furosemide 20 mg PO DAILY 12/07/18 12/31/19 gabapentin 600 mg PO TID 12/07/18 12/31/19 levothyroxine 100 mcg PO DAILY 12/07/18 12/31/19 montelukast 10 mg PO DAILY 12/07/18 12/31/19 potassium chloride 10 meq PO DAILY 12/07/18 12/31/19 insulin aspart U-100 [Novolog 1 unit SUBCUT DIRECTED 08/09/19 12/31/19 U-100 Insulin aspart] aspirin [Ecotrin] 325 mg PO BID 12/31/19 12/31/19 docusate sodium 100 mg PO BID PRN 12/31/19 12/31/19 ipratropium-albuterol 3 ml INHALATION QID PRN 12/31/19 12/31/19 tamsulosin [Flomax] 0.8 mg PO HS 12/31/19 12/31/19 tramadol 50 mg PO Q6H PRN 12/31/19 12/31/19 fluticasone propion-salmeterol 1 ea INHALATION BID 01/01/20 01/03/20 [Advair Diskus] Allergies Allergy/AdvReac Type Severity Reaction Status Date / Time morphine Allergy Hallucinati Verified 12/07/18 02:31 ng Penicillins Allergy Hives Verified 12/07/18 02:31 Review of Systems Review of Systems: ROS unobtainable: Yes unobtainable due to endotracheal tube and unobtainable due to medical condition PMFSH Past Medical History Medical History Asthma Femur fracture, left Graves disease Hyperlipidemia Hypertension Type 1 diabetes mellitus Surgical History Surgical History History of appendectomy History of thyroidectomy, total Family History Family History Sibling Cancer Asthma Mother Leukemia Sibling Malignant neoplasm of prostate Father Asthma Social History Social History Smoking status: Never smoker Alcohol intake: current Drinks per week: 1 Substance use: never Gender identity (if verbalized by the patient): Male Spiritual care concerns: No Exam Const: General: acute distress severe and other ( unresponsive) Nutritional Appearance: well nourished and obese centrally obese Orientation/consciousness: patient obtunded Eyes: Eyelids: eyelids normal Pupils: Dilated pupils bilaterally and Fixed pupils bilaterally Resp: Effort & Inspection: other ( intubated) Auscultation: diminished lung sounds bilateral throughout Cardio: Rate: other Rhythm: other ( no spontaneous heart rate) Skin: General skin exam: mottling ( cyanotic) Neuro: General: patient obtunded Extrem: General: cyan
[2020-06-02 15:25] LABS: INR 1.3; Prothrombin Time 14.1 Seconds (9.50-12.10)
[2020-06-02 15:34] LABS: Band Neutrophils Percent 2 % (0-6); Basophils Percent Manual 0 % (0-1); Eosinophils Absolute Manual 0.07 K/mm3 (0.02-0.5); Eosinophils Percent Manual 1 % (1-6); Lymphocytes Absolute Manual 2.28 K/mm3 (1.1-4.5); Lymphocytes Percent Manual 30 % (18-44); Metamyelocytes Percent 1 %; Monocytes Absolute Manual 0.76 K/mm3 (0.1-0.90); Monocytes Percent Manual 10 % (3-9); Myelocytes Percent 3 %; Neutrophils Absolute Manual 4.18 K/mm3 (1.3-6.7); Neutrophils Percent Manual 53 % (46-73); Total Cells Counted 100
[2020-06-02 15:35] LABS: Platelet Estimate Adequate (Adequate)
[2020-06-02 15:36] LABS: Anion Gap 20 mmol/L (8-16); Blood Urea Nitrogen 18 mg/dL (7-18); Calcium 9.3 mg/dL (8.5-10.1); Carbon Dioxide 12 mmol/L (21-32); Chloride 100 mmol/L (98-108); Creatine Kinase 259 U/L (39-308); Estimated Glomerular Filt Rate 48; Glucose 166 mg/dL (70-99); Magnesium 2.4 mg/dL (1.8-2.4); Osmolality Calculated 279 mOsm/kg (285-295); Potassium 5.6 mmol/L (3.5-5.1); Sodium 132 mmol/L (136-145)
[2020-06-02 15:37] LABS: Troponin I 98.8 ng/L (0.00-60.4)
[2020-06-02 15:56] LABS: Alanine Aminotransferase 145 U/L (16-63); Albumin Level 2.1 g/dL (3.4-5.0); Alkaline Phosphatase 281 U/L (46-116); Aspartate Amino Transferase 275 U/L (15-37); Bilirubin,Total 1.1 mg/dL (0.00-1.00); Total Protein 6.8 g/dL (6.4-8.2)
[2020-06-02 16:10] LABS: D Dimer > 35.20 mg/L (0.19-0.50)
== END 2020-06-02 15:10 | disposition expired ==
PROVIDERS: Emergency Provider Emergency Medicine
DX: I46.9 Cardiac arrest, cause unspecified (principal)
CPT/HCPCS: 31500; 36415; 80053; 82550; 82553; 83735; 84484; 85025; 85380; 85610; 85730; 99283; 99285; J0171